=== PATIENT | male | born 1955 | race African-American/Black ===

== ENCOUNTER 2020-04-01 00:30 | Emergency (ER) | payer OTHER ==
[~2020-04-01] VITALS: Ht 167.6 cm; Wt 64.0 kg
[2020-04-01] MEDS ORDERED: NIFEDIPINE 10MG CAPSULE PO ONE (02:15)
[2020-04-01 03:00] VITALS: BP 127/66
== END 2020-04-01 03:15 | disposition home or self-care (01) ==
LOC: ER 00:30
DX: I10 Essential (primary) hypertension (principal); F17.200 Nicotine dependence, unspecified, uncomplicated; Z88.0 Allergy status to penicillin; Z86.19 Personal history of other infectious and parasitic diseases
CPT/HCPCS: 99283

== ENCOUNTER 2021-11-25 02:13 | Emergency (ER) | payer MEDICARE, OTHER ==
[~2021-11-25] VITALS: Ht 167.6 cm; Wt 75.0 kg
[2021-11-25] MEDS ORDERED: MORPHINE SULFATE 4 MG/ML CPJ (NOT FOR IM USE) IV STA (02:25)
[2021-11-25] MEDS ORDERED: ONDANSETRON HCL 4MG/2ML INJ IV STA (02:25)
[2021-11-25] MEDS ORDERED: VISCOUS LIDOCAINE 2% 15 ML UDC PO ONE (02:30)
[2021-11-25] MEDS ORDERED: MAGNESIUM/ALUMINUM HYDROXIDE/SIMETHICONE 30ML UDC PO ONE (02:30)
[2021-11-25 02:56] LABS: BASOPHILS % 0.6 % (0.0-2.0); EOSINOPHILS % 1.1 % (0.0-5.0); HEMATOCRIT. 40.2 % (42.0-52.0); HEMOGLOBIN. 13.6 g/dL (14.0-18.0); LYMPHOCYTES % 19.8 % (20.0-50.0); MEAN CORPUSCULAR HEMOGLOBIN 33.7 pg (28.0-32.0); MEAN CORPUSCULAR VOLUME 99.2 fL (80.0-94.0); MEAN PLATELET VOLUME 8.1 fl (7.4-10.4); MONOCYTES % 7.5 % (2.0-8.0); PLATELET 244 x1000/uL (130-400); RED BLOOD CELL COUNT 4.05 mill/uL (4.7-6.1); RED CELL DISTRIBUTION WIDTH 14.4 % (11.6-14.6)
[2021-11-25 03:07] LABS: CHLORIDE 107 mEq/L (98-107)
[2021-11-25 03:14] LABS: ETHANOL BLOOD 67 mg/dL
[2021-11-25] MEDS ORDERED: ONDA4TAB5 MT ×2 (05:47→18:26)
[2021-11-25] MEDS ORDERED: MAG355OR21 MT ×2 (05:47→18:26)
[2021-11-25] MEDS ORDERED: PROT40 MT (05:47)
[2021-11-25 05:50] VITALS: BP 154/100
[2021-11-25] MEDS ORDERED: PANT40TA51 MT (18:26)
== END 2021-11-25 06:00 | disposition home or self-care (01) ==
LOC: ER 02:32
DX: K29.70 Gastritis, unspecified, without bleeding (principal); F10.20 Alcohol dependence, uncomplicated; F17.290 Nicotine dependence, other tobacco product, uncomplicated; I10 Essential (primary) hypertension; Z88.0 Allergy status to penicillin; Z13.9 Encounter for screening, unspecified; Y90.3 Blood alcohol level of 60-79 mg/100 ml
CPT/HCPCS: 36415; 71045; 74176; 80053; 80320; 83690; 83880; 84484; 85025; 93005; 96374; 96375; 99284; 99406; J2270; J2405; G0480

== ENCOUNTER 2021-11-25 15:47 | Emergency (ER) | payer MEDICARE, OTHER ==
[~2021-11-25] VITALS: Ht 165.1 cm; Wt 80.0 kg
[~2021-11-25 15:47] MED LIST: MAG355OR21 MT; ONDA4TAB5 MT; PROT40 MT
[2021-11-25] MEDS ORDERED: ONDANSETRON HCL 4MG/2ML INJ IV ONE (16:15)
[2021-11-25] MEDS ORDERED: SODIUM CHLORIDE 0.9% 1,000 ML IV ONE (16:15)
[2021-11-25] MEDS ORDERED: MORPHINE SULFATE 2 MG/ML CPJ (NOT FOR IM USE) IV ONE (16:30)
[2021-11-25] MEDS ORDERED: FAMOTIDINE 20MG/2ML VIAL IV ONE (16:30)
[2021-11-25] MEDS ORDERED: KETOROLAC 30MG/ML VIAL IV ONE (16:30)
[2021-11-25 16:44] LABS: BASOPHILS % 0.3 % (0.0-2.0); EOSINOPHILS % 0.5 % (0.0-5.0); HEMATOCRIT. 39.9 % (42.0-52.0); HEMOGLOBIN. 13.2 g/dL (14.0-18.0); MEAN CORPUSCULAR HEMOGLOBIN 32.6 pg (28.0-32.0); MEAN CORPUSCULAR VOLUME 98.5 fL (80.0-94.0); MEAN PLATELET VOLUME 8.4 fl (7.4-10.4); MONOCYTES % 11.5 % (2.0-8.0); NEUTROPHILS % 76.7 % (40.0-76.0); PLATELET 256 x1000/uL (130-400); RED BLOOD CELL COUNT 4.05 mill/uL (4.7-6.1)
[2021-11-25 16:45] LABS: CHLORIDE 102 mEq/L (98-107)
[2021-11-25 16:49] LABS: ETHANOL BLOOD < 10 mg/dL
[2021-11-25 17:17] VITALS: BP 171/96
[2021-11-25 17:20] LABS: CLARITY URINE CLOUDY (CLEAR); COLOR URINE DARK YELLOW (YELLOW); KETONES URINE 1+ (NEGATIVE); LEUKOCYTE ESTERASE URINE TRACE (NEGATIVE); NITRITE URINE NEGATIVE (NEGATIVE); OCCULT BLOOD URINE NEGATIVE (NEGATIVE); PROTEIN URINE 1+ (NEGATIVE); SPECIFIC GRAVITY URINE 1.023 (1.005-1.030)
[2021-11-25 17:55] LABS: *AMPHETAMINES SCREEN URINE NEGATIVE (NEGATIVE); *BARBITURATES SCREEN URINE NEGATIVE (NEGATIVE); *BENZODIAZEPINES SCREEN URINE NEGATIVE (NEGATIVE); *COCAINE SCREEN URINE NEGATIVE (NEGATIVE); CANNABINOID URINE SCREEN NEGATIVE (NEGATIVE); METHADONE URINE SCREEN NEGATIVE (NEGATIVE); OPIATES URINE SCREEN PRESUMTIVE POSITIVE (NEGATIVE); PHENCYCLIDINE URINE SCREEN NEGATIVE (NEGATIVE)
[2021-11-25] MEDS ORDERED: PANT40TA51 MT (18:26)
[2021-11-25] MEDS ORDERED: ONDA4TAB5 MT (18:26)
[2021-11-25] MEDS ORDERED: MAG355OR21 MT (18:26)
== END 2021-11-25 18:44 | disposition home or self-care (01) ==
LOC: ER 15:47
DX: K29.20 Alcoholic gastritis without bleeding (principal); F10.10 Alcohol abuse, uncomplicated; I10 Essential (primary) hypertension; Z88.0 Allergy status to penicillin; Z98.890 Other specified postprocedural states; Y90.0 Blood alcohol level of less than 20 mg/100 ml
CPT/HCPCS: 36415; 71045; 80053; 80305; 80320; 81003; 83690; 83880; 84484; 85025; 93005; 96361; 96374; 96375; 99284; J1885; J2270; J2405; J3490; J7030; G0480